=== PATIENT | female | born 1965 | race Caucasian/White ===

== ENCOUNTER → 2020-10-21 | Day surgery (SDC) | payer OTHER ==
[~2020-10-21] VITALS: Ht 166.4 cm; Wt 116.2 kg
[~2020-10-21] MED LIST: ATORVASTATIN CA10 MG PO; CALCIUM + D3 E1 EACH PO; CILOSTAZOL100 MG PO; DAILY VALUE1 EACH PO; GLUCOSAMINE1000 MG PO; HCTZ12.5 MG PO; IBUPROFEN800 MG PO; PERCOCET 5-3251 EACH PO; VITAMIN B-121000 MC1 PO; ZESTRIL5 MG PO
[2020-10-21 08:32] LABS: HCT 41.4 % (37.0-47.0); HGB 14.3 g/dl (12.5-16.0); MCH 29.6 pg (25.0-31.0); MCHC 34.5 g/dL (32.0-36.0); MCV 85.7 fL (78.0-100.0); MPV 10.1 fL (6.0-9.5); RBC 4.83 M/uL (4.20-5.40); RDW 12.8 % (11.5-14.0); WBC 7.4 K/uL (4.0-10.5)
[2020-10-21 08:57] LABS: ALBUMIN 3.7 g/dL (3.4-5.0); BUN/CREAT RATIO (CALC) 28.6 RATIO; CREATININE 0.84 mg/dL (0.51-0.95); GLOBULIN (CALCULATION) 3.7 g/dL; POTASSIUM 4.1 mmol/L (3.5-5.1); TOTAL PROTEIN 7.4 g/dL (6.4-8.2)
== END | disposition home or self-care (01) ==
LOC: FAS 07:36
PROVIDERS: Orthopaedic Surgery
DX: M75.122 Complete rotator cuff tear or rupture of left shoulder, not specified as traumatic (principal); M75.52 Bursitis of left shoulder; M19.012 Primary osteoarthritis, left shoulder; E11.51 Type 2 diabetes mellitus with diabetic peripheral angiopathy without gangrene; I10 Essential (primary) hypertension; Z88.8 Allergy status to other drugs, medicaments and biological substances; Z79.1 Long term (current) use of non-steroidal anti-inflammatories (NSAID); Z79.84 Long term (current) use of oral hypoglycemic drugs; Z79.891 Long term (current) use of opiate analgesic; Z79.899 Other long term (current) drug therapy
CPT/HCPCS: 36415; 71045; 80053; 82962; 93005; C1713; J0171; J0690; J1100; J1170; J2250; J2405; J2704; J2710; J2795; J3010; J7120